=== PATIENT | male | born 1980 | race Caucasian/White ===

== ENCOUNTER → 2019-02-20 | Outpatient (CLI) | payer OTHER | LOC: COL.RAD 08:49 | DX: H91.93 Unspecified hearing loss, bilateral (principal); H93.13 Tinnitus, bilateral | CPT/HCPCS: A9585 ==

== ENCOUNTER 2020-03-18 04:59 | Emergency (ER) | payer OTHER ==
[~2020-03-18] VITALS: Ht 180.3 cm; Wt 118.2 kg
[2020-03-18 05:11] VITALS: BP 143/93
[2020-03-18 05:48] LABS: BASO % 0.3 % (0.0-2.0); EOS # 0.1 (0.0-0.7); EOS % 1.3 % (0-4.0); GRAN # 6.2 (1.4-6.5); HEMATOCRIT 45.3 % (42.0-52.0); HEMOGLOBIN 15.5 g/dl (13.5-18.0); LYMPH # 1.2 (1.2-3.4); LYMPH % 15.2 % (20.0-51.0); MEAN CELL VOLUME 91 fl (80.0-100.0); MEAN CORPUSCULAR HEMOGLOBIN 31 pg (27.0-31.0); MEAN CORPUSCULAR HGB CONC 34 g/dl (33.0-37.0); MEAN PLATELET VOLUME 8.7 fl (7.4-10.4); MONO # 0.4 (0.1-0.6); MONO % 4.9 % (1.7-9.3); PLATELET COUNT 271 K/mm3 (130-400)
[2020-03-18 06:00] LABS: ALBUMIN 4.2 gm/dL (3.5-5.0); BILIRUBIN,TOTAL 0.5 mg/dL (0.0-1.0); CALCIUM 9.4 mg/dL (8.4-10.2); CREATININE, serum 0.97 (0.66-1.25); POTASSIUM 3.9 mmol/L (3.4-5.0); TOTAL PROTEIN 6.9 gm/dL (6.4-8.2)
[2020-03-18 06:30] LABS: COLLECTION METHOD CLEAN CATCH
[2020-03-18 06:36] LABS: PH 6 (5-8); SQUAMOUS EPITHELIAL None Seen /hpf; URINE APPEARANCE Clear; URINE BACTERIA None Seen /hpf; URINE BILIRUBIN Negative (NEGATIVE); URINE BLOOD Negative (NEGATIVE); URINE COLOR Yellow; URINE GLUCOSE Negative (NEGATIVE); URINE KETONE Negative (NEGATIVE); URINE LEUKOCYTE ESTERASE Negative (NEGATIVE); URINE NITRATE Negative (NEGATIVE); URINE PROTEIN(semi-quant) Negative (NEGATIVE); URINE RBC None Seen /hpf; URINE UROBILINOGEN Negative (NEGATIVE)
[2020-03-18 08:37] VITALS: PULSE 79; TEMP 99
== END 2020-03-18 08:37 | disposition home or self-care (01) ==
LOC: COL.ER 04:59
PROVIDERS: Emergency Medicine
DX: T75.4XXA Electrocution, initial encounter (principal); W86.8XXA Exposure to other electric current, initial encounter; Y92.59 Other trade areas as the place of occurrence of the external cause
CPT/HCPCS: J7030

== ENCOUNTER 2020-04-23 09:58 | Outpatient (RCR) | payer OTHER | END 2020-06-17 | disposition home or self-care (01) | LOC: WSOH | DX: M25.531 Pain in right wrist (principal); Z90.89 Acquired absence of other organs; W86.1XXD Exposure to industrial wiring, appliances and electrical machinery, subsequent encounter ==